=== PATIENT | female | born 1960 | race Caucasian/White ===

== ENCOUNTER 2016-09-30 11:45 | Emergency (ER) | payer SELFPAY ==
[~2016-09-30] VITALS: Ht 162.6 cm; Wt 50.0 kg
[2016-09-30 11:46] VITALS: BP 128/63; PULSE 112; RESP 16; TEMP 98.9; O2SAT 97
[2016-09-30] MEDS ORDERED: SODIUM CHLOR 0.9% 1000 ML INJ 1,000 ML IV SCH (13:03)
--- NOTE | 2016-09-30 13:08 | PD ---
HPI Chief Complaint: GI Complaint Time Seen by Provider: 13:08 Travel History International Travel<30 days: No Contact w/Intl Traveler<30days: No Traveled to known affect area: No History of Present Illness HPI 56-year-old female presents to the emergency department for evaluation of lower abdominal pain, cramping, diarrhea, nausea persistent over the last 4-6 months. Patient has not been able to get into gastroenterology. She was on Bactrim and Flagyl but states that the Flagyl was done her diarrhea began again. Denies hematemesis or hematochezia. Denies any fever or chills. States that she has decreased appetite. She has no symptoms to report. PFSH Past Medical History Medical History: Denies Significant Hx ?: Not Social History Alcohol Use: Yes Tobacco Use: No Allergies-Medications (Allergen,Severity, Reaction): Coded Allergies: No Known Allergies (Unverified , 09/30/16) Reported Meds & Prescriptions Reported Meds & Active Scripts Active Keflex (Cephalexin) 500 Mg Cap 500 Mg PO Q12H 7 Days Bentyl (Dicyclomine HCl) 10 Mg Cap 10 Mg PO TID PRN Reported Bactrim (Sulfamethoxazole-Trimethoprim) 400-80 Mg Tab 1 Tab PO BID Review of Systems Except as stated in HPI: all other systems reviewed are Neg Physical Exam Narrative GENERAL: Female patient, lying in bed in no acute distress SKIN: Focused skin assessment warm/dry. HEAD: Atraumatic. Normocephalic. EYES: Pupils equal and round. No scleral icterus. No injection or drainage. ENT: No nasal bleeding or discharge. Mucous membranes pink and moist. NECK: Trachea midline. No JVD. CARDIOVASCULAR: Elevated rate and rhythm. No murmur appreciated. RESPIRATORY: No accessory muscle use. Clear to auscultation. Breath sounds equal bilaterally. GASTROINTESTINAL: Abdomen soft, non-tender, nondistended. Hepatic and splenic margins not palpable. MUSCULOSKELETAL: No obvious deformities. No clubbing. No cyanosis. No edema. NEUROLOGICAL: Awake and alert. No obvious cranial nerve deficits. Motor grossly within normal limits. Normal speech. PSYCHIATRIC: Appropriate mood and affect; insight and judgment normal. Data Data Last Documented VS Vital Signs Date Time Temp Pulse Resp B/P Pulse Ox O2 Delivery O2 Flow Rate FiO2 09/30/16 16:49 18 09/30/16 13:19 99 Room Air 09/30/16 11:46 98.9 112 128/63 Orders Complete Blood Count With Diff (09/30/16 13:03) Comprehensive Metabolic Panel (09/30/16 13:03) Lipase (09/30/16 13:03) Prothrombin Time / Inr (Pt) (09/30/16 13:03) Act Partial Throm Time (Ptt) (09/30/16 13:03) Urinalysis - C+S If Indicated (09/30/16 13:03) Ct Abd/Pel W Iv Contrast(Rout) (09/30/16 13:03) Iv Access Insert/Monitor (09/30/16 13:03) Ecg Monitoring (09/30/16 13:03) Oximetry (09/30/16 13:03) Sodium Chlor 0.9% 1000 Ml Inj (Ns 1000 M (09/30/16 13:03) Sodium Chloride 0.9% Flush (Ns Flush) (09/30/16 13:15) Electrocardiogram (09/30/16 13:03) C Diff Toxin Pcr (09/30/16 13:04) Urine Culture (09/30/16 13:20) Ketorolac Inj (Toradol Inj) (09/30/16 14:45) Potassium Chloride (Kcl) (09/30/16 14:45) Ceftriaxone Inj (Rocephin Inj) (09/30/16 14:45) Iohexol 350 Inj (Omnipaque 350 Inj) (09/30/16 16:25) Labs Laboratory Tests Test 09/30/16 09/30/16 13:15 13:20 White Blood Count 9.6 TH/MM3 Red Blood Count 4.31 MIL/MM3 Hemoglobin 12.3 GM/DL Hematocrit 36.4 % Mean Corpuscular Volume 84.3 FL Mean Corpuscular Hemoglobin 28.5 PG Mean Corpuscular Hemoglobin 33.8 % Concent Red Cell Distribution Width 15.0 % Platelet Count 313 TH/MM3 Mean Platelet Volume 9.4 FL Neutrophils (%) (Auto) 58.2 % Lymphocytes (%) (Auto) 28.5 % Monocytes (%) (Auto) 11.1 % Eosinophils (%) (Auto) 1.6 % Basophils (%) (Auto) 0.6 % Neutrophils # (Auto) 5.6 TH/MM3 Lymphocytes # (Auto) 2.7 TH/MM3 Monocytes # (Auto) 1.1 TH/MM3 Eosinophils # (Auto) 0.2 TH/MM3 Basophils # (Auto) 0.1 TH/MM3 CBC Comment DIFF FINAL Differential Comment Prothrombin Time 10.8 SEC Prothromb Time International 1.0 RATIO Ratio Activated Partial 25.8 SEC Thromboplast Time Sodium Level 137 MEQ/L Potassium Level 3.2 MEQ/L Chloride Level 105 MEQ/L Carbon Dioxide Level 23.6 MEQ/L Anion Gap 8 MEQ/L Blood Urea Nitrogen 9 MG/DL Creatinine 0.73 MG/DL Estimat Glomerular Filtration 82 ML/MIN Rate Random Glucose 93 MG/DL Calcium Level 8.5 MG/DL Total Bilirubin 0.3 MG/DL Aspartate Amino Transf 11 U/L (AST/SGOT) Alanine Aminotransferase 16 U/L (ALT/SGPT) Alkaline Phosphatase 70 U/L Total Protein 6.9 GM/DL Albumin 2.8 GM/DL Lipase 561 U/L Urine Color YELLOW Urine Turbidity CLEAR Urine pH 5.5 Urine Specific [place] 1.009 Urine Protein NEG mg/dL Urine Glucose (UA) NEG mg/dL Urine Ketones NEG mg/dL Urine Occult Blood MOD Urine Nitrite NEG Urine Bilirubin NEG Urine Urobilinogen LESS THAN 2.0 MG/DL Urine Leukocyte Esterase LARGE Urine RBC 15 /hpf Urine WBC 28 /hpf Urine Squamous Epithelial 1 /hpf Cells Urine Bacteria RARE /hpf Urine Mucus FEW /lpf Microscopic Urinalysis Comment CULTURE INDICATED MDM Medical Decision Making Medical Screen Exam Complete: Yes Emergency Medical Condition: Yes Medical Record Reviewed: Yes Differential Diagnosis Colitis versus diverticulitis versus UTI versus gastritis versus pancreatitis Narrative Course 56-year-old female presents to emergency department for evaluation. Patient appears without distress. Her abdominal exam is essentially benign. She is tachycardic at first however after IV fluids, heart rate normalizes. CBC is without acute concern. CMP is with mild hypokalemia 3.2. This is repleted in the emergency department. Lipase is elevated at 561 however patient's abdominal exam is not correlate with an acute pancreatitis. Urinalysis was with moderate occult blood, large leukocyte esterase, 15 RBC, 28 WBC, rare bacteria, few mucus, culture is indicated. I discussed the patient with my attending who also assessed the patient area and patient will be treated for UTI and encouraged to seek gastroenterology evaluation. She agrees to return immediately with any acute worsening of symptoms. Diagnosis Primary Impression: UTI (urinary tract infection) Qualified Code: N39.0 - Urinary tract infection with hematuria, site unspecified Additional Impressions: Diarrhea Qualified Code: R19.7 - Diarrhea, unspecified type Hypokalemia Abdominal pain Qualified Code: R10.30 - Lower abdominal pain Referrals: Validation Manager Primary Care Physician Patient Instructions: Chronic Diarrhea (ED), General Instructions, Urinary Tract Infection in Women (ED) Additional Instructions: Follow-up with your primary care provider Seek gastroenterology evaluation Slope diet; advanced as tolerated Avoid alcohol use Return immediately with any acute worsening symptoms Med/Other Pt SpecificInfo: Prescription(s) given Scripts Cephalexin (Keflex)500 Mg [id number] Mg PO Q12H 7 Days Ref 0 Prov:Kaye Busby 09/30/16 Dicyclomine (Bentyl)10 Mg Cap10 Mg PO TID PRN (Bowel Management) #15 CAP Ref 0 Prov:Kaye Busby 09/30/16 Disposition: 01 DISCHARGE HOME Condition: Stable Kaye Busby Sep 30, 2016 13:08
[2016-09-30] MEDS ORDERED: BACT400T PO (13:10)
[2016-09-30] MEDS ORDERED: SODIUM CHLORIDE 0.9% FLUSH 10 ML FLUSH IV FLUSH PRN (13:15)
[2016-09-30 13:19] VITALS: RESP 18; O2SAT 99
[2016-09-30 13:56] LABS: AUTOMATED NEUTROPHIL # 5.6 TH/MM3 (1.8-7.7); BASOPHIL # 0.1 TH/MM3 (0-0.2); BASOPHIL % 0.6 % (0.0-2.0); EOSINOPHIL # 0.2 TH/MM3 (0-0.4); EOSINOPHIL % 1.6 % (0.0-4.0); HEMATOCRIT 36.4 % (35.0-46.0); HEMO FLAGS DIFF FINAL; LYMPH % 28.5 % (9.0-44.0); LYMPHOCYTE # 2.7 TH/MM3 (1.0-4.8); MEAN CELL VOLUME 84.3 FL (80.0-100.0); MEAN CORPUSCULAR HEMOGLOBIN 28.5 PG (27.0-34.0); MEAN CORPUSCULAR HGB CONC 33.8 % (32.0-36.0); MONO % 11.1 % (0.0-8.0); NEUT % 58.2 % (16.0-70.0); PLATELET COUNT 313 TH/MM3 (150-450); RED BLOOD COUNT 4.31 MIL/MM3 (4.00-5.30); WHITE BLOOD COUNT 9.6 TH/MM3 (4.0-11.0)
[2016-09-30 13:58] LABS: BACTERIA, URINE RARE /hpf; BLOOD, URINE MOD (NEG); COMMENT (UR) CULTURE INDICATED; CULTURE IF INDICATED CULTURE INDICATED; GLUCOSE,URINE NEG (NEG); KETONE, URINE NEG (NEG); MUCUS URINE FEW /lpf (OCC); NITRITE,URINE NEG (NEG); PH, URINE 5.5 (5.0-8.5); SQUAMOUS EPITHELIAL CELL URINE 1 /hpf (0-5); URINE COLOR YELLOW (YELLW/STRAW)
[2016-09-30 14:07] LABS: APTT (PATIENT) 25.8 SEC (24.3-30.1); PROTHROMBIN TIME - PATIENT 10.8 SEC (9.8-11.6)
[2016-09-30 14:15] LABS: ANION GAP 8 MEQ/L (5-15); AST (GOT) 11 U/L (15-37); BICARBONATE 23.6 MEQ/L (21.0-32.0); BLOOD UREA NITROGEN 9 MG/DL (7-18); CHLORIDE 105 MEQ/L (98-107); GLOMERULAR FILTRATION RATE 82 ML/MIN (>89); POTASSIUM 3.2 MEQ/L (3.5-5.1); SODIUM (NA) 137 MEQ/L (136-145)
[2016-09-30 14:19] LABS: ALKALINE PHOSPHATASE 70 U/L (45-117); ALT (GPT) 16 U/L (10-53); TOTAL BILIRUBIN ADULT 0.3 MG/DL (0.2-1.0)
--- NOTE | 2016-09-30 14:36 | PD ---
Physical Exam Narrative I, Dr. March, have reviewed the advance practice practitioner's documentation and am in agreement, met with the patient face to face, made the diagnosis, and the medical decision making was done by me. *My assessment and Findings: Cystitis vs. colitis vs. diverticulitis vs. dehydration vs. electrolyte abnormality 56yo F with lower abdominal pain and nausea. Pt also with chronic diarrhea. Labs reviewed, no leukocytosis. Normal creatinine. Lipase mild elevated at 561. LFTs normal. UA showed large leukocyte. WBC 28. Pt given ceftriaxone 1gm IV. K: 3.2, replaced orally. Pt also given toradol for pain. Abdomen soft , TTP suprapubic region. Nondistended. No rebound tenderness or guarding. CT abd/pelvis negative. Return precautions given. Data Data Last Documented VS Vital Signs Date Time Temp Pulse Resp B/P Pulse Ox O2 Delivery O2 Flow Rate FiO2 09/30/16 16:49 18 09/30/16 13:19 99 Room Air 09/30/16 11:46 98.9 112 128/63 Orders Complete Blood Count With Diff (09/30/16 13:03) Comprehensive Metabolic Panel (09/30/16 13:03) Lipase (09/30/16 13:03) Prothrombin Time / Inr (Pt) (09/30/16 13:03) Act Partial Throm Time (Ptt) (09/30/16 13:03) Urinalysis - C+S If Indicated (09/30/16 13:03) Ct Abd/Pel W Iv Contrast(Rout) (09/30/16 13:03) Iv Access Insert/Monitor (09/30/16 13:03) Ecg Monitoring (09/30/16 13:03) Oximetry (09/30/16 13:03) Sodium Chlor 0.9% 1000 Ml Inj (Ns 1000 M (09/30/16 13:03) Sodium Chloride 0.9% Flush (Ns Flush) (09/30/16 13:15) Electrocardiogram (09/30/16 13:03) C Diff Toxin Pcr (09/30/16 13:04) Urine Culture (09/30/16 13:20) Ketorolac Inj (Toradol Inj) (09/30/16 14:45) Potassium Chloride (Kcl) (09/30/16 14:45) Ceftriaxone Inj (Rocephin Inj) (09/30/16 14:45) Iohexol 350 Inj (Omnipaque 350 Inj) (09/30/16 16:25) Labs Laboratory Tests Test 09/30/16 09/30/16 13:15 13:20 White Blood Count 9.6 TH/MM3 Red Blood Count 4.31 MIL/MM3 Hemoglobin 12.3 GM/DL Hematocrit 36.4 % Mean Corpuscular Volume 84.3 FL Mean Corpuscular Hemoglobin 28.5 PG Mean Corpuscular Hemoglobin 33.8 % Concent Red Cell Distribution Width 15.0 % Platelet Count 313 TH/MM3 Mean Platelet Volume 9.4 FL Neutrophils (%) (Auto) 58.2 % Lymphocytes (%) (Auto) 28.5 % Monocytes (%) (Auto) 11.1 % Eosinophils (%) (Auto) 1.6 % Basophils (%) (Auto) 0.6 % Neutrophils # (Auto) 5.6 TH/MM3 Lymphocytes # (Auto) 2.7 TH/MM3 Monocytes # (Auto) 1.1 TH/MM3 Eosinophils # (Auto) 0.2 TH/MM3 Basophils # (Auto) 0.1 TH/MM3 CBC Comment DIFF FINAL Differential Comment Prothrombin Time 10.8 SEC Prothromb Time International 1.0 RATIO Ratio Activated Partial 25.8 SEC Thromboplast Time Sodium Level 137 MEQ/L Potassium Level 3.2 MEQ/L Chloride Level 105 MEQ/L Carbon Dioxide Level 23.6 MEQ/L Anion Gap 8 MEQ/L Blood Urea Nitrogen 9 MG/DL Creatinine 0.73 MG/DL Estimat Glomerular Filtration 82 ML/MIN Rate Random Glucose 93 MG/DL Calcium Level 8.5 MG/DL Total Bilirubin 0.3 MG/DL Aspartate Amino Transf 11 U/L (AST/SGOT) Alanine Aminotransferase 16 U/L (ALT/SGPT) Alkaline Phosphatase 70 U/L Total Protein 6.9 GM/DL Albumin 2.8 GM/DL Lipase 561 U/L Urine Color YELLOW Urine Turbidity CLEAR Urine pH 5.5 Urine Specific [place] 1.009 Urine Protein NEG mg/dL Urine Glucose (UA) NEG mg/dL Urine Ketones NEG mg/dL Urine Occult Blood MOD Urine Nitrite NEG Urine Bilirubin NEG Urine Urobilinogen LESS THAN 2.0 MG/DL Urine Leukocyte Esterase LARGE Urine RBC 15 /hpf Urine WBC 28 /hpf Urine Squamous Epithelial 1 /hpf Cells Urine Bacteria RARE /hpf Urine Mucus FEW /lpf Microscopic Urinalysis Comment CULTURE INDICATED MDM Supervised Visit with LAURIE: Yes Diagnosis Primary Impression: UTI (urinary tract infection) Qualified Code: N39.0 - Urinary tract infection with hematuria, site unspecified Scripts Cephalexin (Keflex)500 Mg [id number] Mg PO Q12H 7 Days Ref 0 Prov:Kaye Busby 09/30/16 Dicyclomine (Bentyl)10 Mg Cap10 Mg PO TID PRN (Bowel Management) #15 CAP Ref 0 Prov:Kaye Busby 09/30/16 Brea March DO Sep 30, 2016 14:36
[2016-09-30] MEDS ORDERED: POTASSIUM CHLORIDE 10 MEQ CONTROLLED RELEASE TAB PO ONE (14:45)
[2016-09-30] MEDS ORDERED: KETOROLAC TROMETHAMINE 30 MG/ML (IVP) VIAL IV PUSH ONE (14:45)
[2016-09-30] MEDS ORDERED: cefTRIAXone INJ 1,000 MG in SODIUM CHLORIDE 0.9% INJ 100 ML IV ONE (14:45)
[2016-09-30] MEDS ORDERED: IOHEXOL 350 MG/ML 10 ML VIAL (for RAD DIAG) IV ONE (16:25)
--- NOTE | 2016-09-30 16:28 | RADRPT ---
EXAM DATE/TIME: 09/30/2016 16:07 [facility] COMPARISON: No previous studies available for comparison. INDICATIONS : Patient complains of abdomen pain, nausea,vomitting for 3 months. IV CONTRAST: 97 cc Omnipaque 350 (iohexol) IV ORAL CONTRAST: No oral contrast ingested. RADIATION DOSE: 4.70 CTDIvol (mGy) MEDICAL HISTORY : None SURGICAL HISTORY : section. ENCOUNTER: Initial ACUITY: 4 - 6 months PAIN SCALE: 5/10 LOCATION: abdomen TECHNIQUE: Volumetric scanning of the abdomen and pelvis was performed. Using automated exposure control and ad justment of the mA and/or kV according to patient size, radiation dose was kept as low as reasonably achievable to obtain optimal diagnostic quality images. DICOM format image data is available electro nically for review and comparison. FINDINGS: LOWER LUNGS: The visualized lower lungs are clear. LIVER: Homogeneous density without lesion. There is no dilation of the biliary tree. No calcified gallston es. SPLEEN: Normal size without lesion. PANCREAS: Within normal limits. KIDNEYS: Normal in size and shape. There is no mass, stone or hydronephrosis. ADRENAL GLANDS: Within normal limits. VASCULAR: There is no aortic aneurysm. BOWEL/MESENTERY: The stomach, small bowel, and colon demonstrate no acute abnormality. There is no free intraperitone al air or fluid. ABDOMINAL WALL: Within normal limits. RETROPERITONEUM: There is no lymphadenopathy. BLADDER: No wall thickening or mass. REPRODUCTIVE: Within normal limits. INGUINAL: There is no lymphadenopathy or hernia. MUSCULOSKELETAL: Within normal limits for patient age. CONCLUSION: Normal examination. Rodney Serra MD on September 30, 2016 at 16:26 Board Certified Radiologist. This report was verified electronically.
[2016-09-30] MEDS ORDERED: CEPH-460 PO (16:38)
[2016-09-30] MEDS ORDERED: DICY10 PO (16:38)
[2016-09-30 16:49] VITALS: RESP 18
--- NOTE | 2016-10-01 10:02 | EKG ---
Date Performed: 09/30/2016 Time Performed: 13:43:15 PTAGE: 56 years EKG: Sinus rhythm INCOMPLETE RIGHT BUNDLE BRANCH BLOCK BORDERLINE ECG NO PREVIOUS TRACING DOCTOR: Rodney Lord Interpretating Date/Time 10/01/2016 10:00:37
== END 2016-09-30 16:58 | disposition home or self-care (01) ==
LOC: NEPD 11:45
DX: N39.0 Urinary tract infection, site not specified (principal); R11.0 Nausea; R19.7 Diarrhea, unspecified; E87.6 Hypokalemia; Z79.899 Other long term (current) drug therapy
CPT/HCPCS: 74177; 80053; 81001; 83690; 85025; 85610; 85730; 87086; 93005; 96361; 96365; 96375; 99285; J0696; J1885; J7030; Q9967